=== PATIENT | female | born 1980 | race Caucasian/White ===

== ENCOUNTER 2023-12-11 08:03 | Emergency (ER) | payer MEDICAID ==
[~2023-12-11] VITALS: Ht 157.5 cm; Wt 61.0 kg
[2023-12-11 08:17] VITALS: BP 144/93; PULSE 65; RESP 20; TEMP 98.5; O2SAT 100
[2023-12-11 08:46] LABS: CLARITY URINE CLEAR (CLEAR); COLOR URINE YELLOW (YELLOW); GLUCOSE URINE NEGATIVE (NEGATIVE); KETONES URINE NEGATIVE (NEGATIVE); LEUKOCYTE ESTERASE URINE NEGATIVE (NEGATIVE); NITRITE URINE NEGATIVE (NEGATIVE); OCCULT BLOOD URINE NEGATIVE (NEGATIVE); PROTEIN URINE NEGATIVE (NEGATIVE); SPECIFIC GRAVITY URINE 1.007 (1.005-1.030); UROBILINOGEN URINE 0.2 E.U./dL (0.2-1.0)
[2023-12-11 09:01] LABS: EOSINOPHILS % 4.2 % (0.0-5.0); HEMATOCRIT. 43.1 % (36.0-48.0); HEMOGLOBIN. 14.9 g/dL (12.0-16.0); LYMPHOCYTES % 36.3 % (20.0-50.0); MEAN CORPUSCULAR HEMOGLOBIN 30.5 pg (28.0-32.0); MEAN CORPUSCULAR HGB CONC 34.5 g/dL (31.0-37.0); MEAN CORPUSCULAR VOLUME 88.4 fL (81.0-99.0); MEAN PLATELET VOLUME 8.2 fl (7.4-10.4); MONOCYTES % 6.3 % (2.0-8.0); NEUTROPHILS % 52.2 % (40.0-76.0); PLATELET 265 x1000/uL (130-400); RED BLOOD CELL COUNT 4.87 mill/uL (4.2-5.4); RED CELL DISTRIBUTION WIDTH 12.8 % (11.6-14.6); WHITE BLOOD COUNT 6.1 x1000/uL (4.5-11.0)
[2023-12-11 09:19] LABS: ALANINE AMINOTRANSFERASE 18 IU/L (10-49); ALBUMIN 4.9 g/dL (3.2-4.8); ASPARTATE AMINOTRANSFERASE 11 IU/L (<34); BILIRUBIN TOTAL 0.5 mg/dL (0.1-1.0); CALCIUM 9.5 mg/dL (8.7-10.4); CARBON DIOXIDE 19 mEq/L (21-32); CHLORIDE 107 mEq/L (98-107); CREATININE 0.7 mg/dL (0.6-1.0); GLUCOSE 110 mg/dL (70-105); POTASSIUM 4.2 mEq/L (3.5-5.1); SODIUM 135 mEq/L (136-145); UREA NITROGEN BLOOD 8 mg/dL (9-23)
[2023-12-11 09:21] LABS: TROPONIN I HIGH SENSITIVITY < 4 ng/L (3.0-34)
[2023-12-11] MEDS ORDERED: ACET-2708 MT (09:26)
[2023-12-11] MEDS ORDERED: METH-653 MT (09:26)
[2023-12-11] MEDS ORDERED: ACETAMINOPHEN 325MG TABLET PO ONE (09:30)
[2023-12-11] MEDS ORDERED: METHOCARBAMOL 500MG TABLET PO ONE (09:30)
== END 2023-12-11 10:05 | disposition home or self-care (01) ==
LOC: ER 08:25
DX: R07.89 Other chest pain (principal); M94.0 Chondrocostal junction syndrome [Tietze]; Z98.890 Other specified postprocedural states
CPT/HCPCS: 36415; 71045; 80053; 81003; 81025; 84484; 85025; 93005; 99285